=== PATIENT | female | born 1960 | race African-American/Black ===

== ENCOUNTER 2017-12-02 14:43 | Emergency (ER) | payer SELFPAY ==
[~2017-12-02] VITALS: Ht 154.9 cm; Wt 57.0 kg
[2017-12-02 14:55] VITALS: BP 157/81
[2017-12-02] MEDS ORDERED: HYDROCODONE/APAP 7.5/325MG 1 TAB TABLET PO ONE (15:30)
[2017-12-02] MEDS ORDERED: ONDANSETRON 4MG ODT PO ONE (15:30)
[2017-12-02] MEDS ORDERED: IBUPROFEN 600MG TABLET PO ONE (15:45)
== END 2017-12-02 17:03 | disposition home or self-care (01) ==
LOC: ER 15:33
DX: S42.202A Unspecified fracture of upper end of left humerus, initial encounter for closed fracture (principal); S50.02XA Contusion of left elbow, initial encounter; I10 Essential (primary) hypertension; W01.0XXA Fall on same level from slipping, tripping and stumbling without subsequent striking against object, initial encounter; Y93.89 Activity, other specified; Y92.89 Other specified places as the place of occurrence of the external cause; F17.210 Nicotine dependence, cigarettes, uncomplicated
CPT/HCPCS: 73030; 73070; 99284; A4565; Q0162